=== PATIENT | female | born 1965 ===

== ENCOUNTER 2025-01-15 11:54 | Outpatient (CLI) | payer OTHER | END 2025-01-15 11:55 | disposition home or self-care (01) | LOC: TOM 11:54 | PROVIDERS: ATTEND Orthopaedic Surgery | DX: S42.231A 3-part fracture of surgical neck of right humerus, initial encounter for closed fracture (principal); S42.232A 3-part fracture of surgical neck of left humerus, initial encounter for closed fracture ==

== ENCOUNTER 2025-01-18 11:13 | Outpatient (CLI) | payer OTHER | END 2025-01-18 11:20 | disposition home or self-care (01) | LOC: RAD 11:13 | PROVIDERS: ATTEND Orthopaedic Surgery | DX: S42.231A 3-part fracture of surgical neck of right humerus, initial encounter for closed fracture (principal); S42.232A 3-part fracture of surgical neck of left humerus, initial encounter for closed fracture ==

== ENCOUNTER 2025-01-25 13:22 | Outpatient (CLI) | payer OTHER | END 2025-01-25 13:32 | disposition home or self-care (01) | LOC: RAD 13:22 | PROVIDERS: ATTEND Orthopaedic Surgery | DX: S42.231A 3-part fracture of surgical neck of right humerus, initial encounter for closed fracture (principal); S42.232A 3-part fracture of surgical neck of left humerus, initial encounter for closed fracture ==

== ENCOUNTER 2025-02-08 12:25 | Outpatient (CLI) | payer OTHER | END 2025-02-08 12:37 | disposition home or self-care (01) | LOC: RAD 12:25 | PROVIDERS: ATTEND Orthopaedic Surgery | DX: S42.231A 3-part fracture of surgical neck of right humerus, initial encounter for closed fracture (principal); S42.232A 3-part fracture of surgical neck of left humerus, initial encounter for closed fracture ==

== ENCOUNTER 2025-03-23 13:33 | Outpatient (CLI) | payer OTHER | END 2025-03-23 13:50 | disposition home or self-care (01) | LOC: RAD 13:33 | PROVIDERS: ATTEND Orthopaedic Surgery | DX: S42.231D 3-part fracture of surgical neck of right humerus, subsequent encounter for fracture with routine healing (principal); S42.232D 3-part fracture of surgical neck of left humerus, subsequent encounter for fracture with routine healing; X58.XXXD Exposure to other specified factors, subsequent encounter ==

== ENCOUNTER 2025-04-25 11:49 | Outpatient (CLI) | payer OTHER | END 2025-04-25 11:57 | disposition home or self-care (01) | LOC: RAD 11:49 | PROVIDERS: ATTEND Orthopaedic Surgery | DX: S42.231D 3-part fracture of surgical neck of right humerus, subsequent encounter for fracture with routine healing (principal); S42.232D 3-part fracture of surgical neck of left humerus, subsequent encounter for fracture with routine healing; S42.231A 3-part fracture of surgical neck of right humerus, initial encounter for closed fracture; S42.232A 3-part fracture of surgical neck of left humerus, initial encounter for closed fracture ==

== ENCOUNTER 2025-05-22 11:49 | Outpatient (CLI) | payer OTHER | END 2025-05-22 12:01 | disposition home or self-care (01) | LOC: MAMO-SONO 11:49 | DX: N64.4 Mastodynia (principal); Z12.31 Encounter for screening mammogram for malignant neoplasm of breast; E11.65 Type 2 diabetes mellitus with hyperglycemia; S42.211A Unspecified displaced fracture of surgical neck of right humerus, initial encounter for closed fracture; S42.212A Unspecified displaced fracture of surgical neck of left humerus, initial encounter for closed fracture; M79.7 Fibromyalgia; F33.2 Major depressive disorder, recurrent severe without psychotic features; K76.0 Fatty (change of) liver, not elsewhere classified; A60.04 Herpesviral vulvovaginitis; E83.42 Hypomagnesemia; D51.3 Other dietary vitamin B12 deficiency anemia; E66.89 Other obesity not elsewhere classified; I11.9 Hypertensive heart disease without heart failure ==